=== PATIENT | male | born 1945 | race Caucasian/White ===

== ENCOUNTER 2020-10-15 14:27 | Emergency (ER) | payer MEDICARE ==
[~2020-10-15] VITALS: Wt 117.9 kg
== END 2020-10-15 20:00 | disposition home or self-care (01) ==
LOC: ED 14:27
DX: S52.502A Unspecified fracture of the lower end of left radius, initial encounter for closed fracture (principal); W18.39XA Other fall on same level, initial encounter; Y93.89 Activity, other specified; Y92.89 Other specified places as the place of occurrence of the external cause; Y99.8 Other external cause status